=== PATIENT | male | born 1960 | race Caucasian/White ===

== ENCOUNTER 2023-06-10 06:01 | Day surgery (SDC) | payer BC, SELFPAY ==
[2023-06-10] VITALS (13 sets, daily range): BP systolic 95–128; BP diastolic 55–88; PULSE 66–78; RESP 16; TEMP 36.2–37.1; O2SAT 90–94; BMI 30.9
[2023-06-10] MEDS: EPINEPHrine 1 MG in SODIUM CHLORIDE IRRIG SOLUTION 3,000 ML 9003 MG IRRIGATION (06:00)
[2023-06-10] MEDS: LACTATED RINGERS 1000 ML 1,000 ML 100 ML IV (06:48)
[2023-06-10] MEDS: SODIUM CHLORIDE 0.9 % (FLUSH) 10 ML SYRINGE IVF (06:48)
[2023-06-10] MEDS: MIDAZOLAM HCL 1 MG/ML inj IVP (07:08)
[2023-06-10] MEDS: fentaNYL 100 MCG/2 ML inj IVP (07:08)
--- NOTE | 2023-06-10 07:14 | SUR.PREOP ---
TIME?OUT:?0708 PT/RN/MDA?VERIFICATION?OF?SURGICAL?SITE,?PROCEDURE,?AND?CONSENT OBTAINED?PRIOR?TO?INVASIVE?PROCEDURE.
--- NOTE | 2023-06-10 07:21 | W.PM.NB ---
Nerve Block Nerve Block Time Seen by Provider: 07:11 Date Seen: 06/10/23 Type of block requested by surgeon for post-operative analgesia: supraclavicular Side: right Time out performed: Yes Verification of patient name: Yes Verification of date of : Yes Site marking: site marked Name of person performing procedure: Fabian Continuous monitoring Was continuous monitoring of O2 sat, B/P, monitoring analyst, recorded every 15 minutes?: Yes Procedure Checklist: sterile prep, needles and gloves Ultrasound guided. Images saved: Yes Medications given in 5ml increments after negative aspiration: Ropivicaine %: 0.5 mL: 20 Needle gauge: 22 Decadron (mg): 10 Precedex (mcg): 25 Patient tolerated procedure well: Yes Block Charges Block Charge (with Pro Fee): Brachial Plexus Use of Ultrasound Machine for Block: Yes- US Guidance/pain block
--- NOTE | 2023-06-10 07:22 | W.ANESCHARGE ---
Anesthesia Charges Start Date/Time Anesthesia Start Date: 06/10/23 Anesthesia Start Time: 07:26 Stop Date/Time Anesthesia Stop Date: 06/10/23 Anesthesia Stop Time: 09:06
[2023-06-10] MEDS: CEFAZOLIN 2 GM in 0.9 % SODIUM CHLORIDE Mini-bag 100 ML IVPB (07:50)
[2023-06-10] MEDS: EPINEPHrine 1 MG in SODIUM CHLORIDE IRRIG SOLUTION 3,000 ML 3001 MG IRRIGATION ×2 (08:40→08:55)
--- NOTE | 2023-06-10 08:41 | PM.ORPRC ---
Procedure Note Date of procedure: 06/10/23 Procedure: PREOPERATIVE DIAGNOSES: 1. Right shoulder rotator cuff tear. 2. Right shoulder AC degenerative joint disease, primary, moderate-severe 3. Right shoulder subacromial impingement syndrome. POSTOPERATIVE DIAGNOSES: 1. Right shoulder rotator cuff tear-full thickness supraspinatus 2. Right shoulder AC degenerative joint disease, primary, moderate-severe 3. Right shoulder partial-thickness long head of biceps tendon tearing 4. Right shoulder partial tearing to the anterior and superior labrum 5. Right shoulder subacromial impingement syndrome. NAME OF OPERATION: 1. Right shoulder arthroscopic rotator cuff repair. 2. Right shoulder arthroscopic distal clavicle excision 3. Right shoulder arthroscopic limited glenohumeral debridement 4. Right shoulder arthroscopic bursectomy, subacromial decompression/partial acromioplasty. SURGEON: Tavon Dorsey MD AIR INTELLIGENCE SPECIALIST: Andrei Potts. Of note, a skilled assistant kitchen manager was critical for this case to aide in patient positioning, suture manipulation, arm positioning, instrument positioning, and closure. ANESTHESIA: General plus preoperative supraclavicular block. EBL: 25 mL IMPLANTS: Single 4.75 mm BioComposite SwiveLock suture anchor-Arthrex COMPLICATIONS: None evident INDICATIONS: The patient is a pleasant, 62-year-old male who has experienced right shoulder pain that has been increasing in recent time. Physical exam and imaging were consistent with a rotator cuff tear. Given their findings, as well as the weakness and pain, and inadequate response to nonoperative management, recommendation was made for surgery. FINDINGS: Exam under anesthesia revealed stable shoulder with excellent range of motion. The diagnostic arthroscopy revealed healthy chondral surfaces of the glenohumeral joint. The Subscapularis tendon was intact and with a healthy attachment. The long head of the biceps tendon was torn near its origin a partial-thickness manner on the deep surface. The superior rotator cuff tendon was found to be torn full-thickness near the anterior portion of the distal supraspinatus over approximately 8-10 mm in diameter. The labrum was torn in the anterior and superior aspects. No loose bodies were identified within the pouch or subscapularis recess. PROCEDURE: Following a thorough discussion of risks, benefits, and alternatives, consent was obtained and the right shoulder was marked. The patient was brought to the operating room and placed supine on the operating table. Induction of anesthesia was completed after preoperative supraclavicular block was administered in preop holding. Appropriate time out was performed identifying proper patient, site, and procedure. 2 g IV Ancef was administered within 1 hour of incision preoperatively. The right upper extremity was prepped and draped in the appropriate sterile fashion using ChloraPrep prep. This was after the patient was positioned in the beach chair with their head in neutral alignment and all bony prominences well padded. The shoulder was insufflated with 20mL of normal saline via an 18g spinal needle from a posterior approach. An 11 blade skin incision allowed a blunt trochar to be inserted and diagnostic arthroscopy to be performed with the findings as noted above. An anterior portal was established with an outside in technique. This allowed the probe to be inserted and confirm the diagnostic arthroscopic findings. The shaver was then inserted and allowed debridement of the anterior and superior labrum as well as long head of the biceps tendon deep surface partial-thickness tearing near the origin. Following this, the upper border subscapularis was probed and found to be stable. Thereafter, the subacromial space was entered. Here, a complete bursectomy and partial acromioplasty/subacromial decompression was performed with a combination of radiofrequency ablator, the shaver, and a 5.5 mm bur. Additionally, distal clavicle excision was performed with the bur. 8 mm of distal clavicle was resected based on the with of our bur. Further inspection of the supraspinatus and infraspinatus rotator cuff was performed. This identified the tear as noted above. The margins of the tear were debrided, and the greater tuberosity was debrided with a combination of the apollo cautery, shaver, and bur on reverse setting. After gentle decortication, single FiberTape suture was passed in a horizontal mattress fashion with the scorpion needle. It was brought to a single anchor further laterally with excellent reapproximation and securing of the rotator cuff. Prior to anchor transit driver removal, the eyelet sutures were tugged on for each anchor and found that the anchor had excellent stability within the bone. The shoulder was placed through range of motion and found to be stable. The rotator cuff was re-probed and found to be stable. Instruments were removed. Excess fluid was drained, closure performed with 4-0 Monocryl and Steri-Strips. Dressings were applied. Sling was applied. The patient was awoken from anesthesia and transferred to the PACU in stable condition. A skilled assistant kitchen manager was critical for this case to aid in patient positioning, limb positioning, skill to manipulate arthroscopic instruments and camera, suture management, patient safety, and closure. PLAN: 1. Elbow, forearm, wrist and digit range of motion as tolerated. 2. Encouraged ice. 3. Percocet for pain as needed. 4. Sling at all times except for ROM and showering. 5. Follow up with PA visit in 1-2 weeks for wound check. Initiate physical therapy following that visit for passive range of motion. Initiate active assisted range of motion at 3 weeks due to small tear size. May do pendulums now.
--- NOTE | 2023-06-10 09:08 | W.ANESCHARGE ---
Anesthesia Charges Start Date/Time Anesthesia Start Date: 06/10/23 Anesthesia Start Time: 07:26 Stop Date/Time Anesthesia Stop Date: 06/10/23 Anesthesia Stop Time: 09:06
== END 2023-06-10 10:50 | disposition home or self-care (01) ==
PROVIDERS: PCP Family Medicine; Visit Provider Orthopaedic Surgery Sports Medicine
PROC: (CPT 29805; principal; 2023-06-10 07:30)
DX: M75.101 Unspecified rotator cuff tear or rupture of right shoulder, not specified as traumatic (principal); M19.011 Primary osteoarthritis, right shoulder; M75.41 Impingement syndrome of right shoulder; S46.111D Strain of muscle, fascia and tendon of long head of biceps, right arm, subsequent encounter; S43.431A Superior glenoid labrum lesion of right shoulder, initial encounter; G89.18 Other acute postprocedural pain
CPT/HCPCS: 29827; 29826; 29824; 29822; 01630; 64415; 76942; C1713; J0171; J0330; J0690; J1100; J2250; J2405; J2704; J3010; J7120; L3670

== ENCOUNTER 2024-01-10 09:59 | Outpatient (CLI) | payer OTHER, SELFPAY ==
--- NOTE | 2024-01-10 10:15 | MR_ITS ---
[address] [address] Phone:?[phone] Fax:?[phone] Referring Physician Information: Tavon Dorsey M.D. [id number] [facility] [address] Phone:?[phone] Fax:?[phone] Patient:Sakina Guardado D.Chi.B:?1960 Sex:?Male Phone:?[phone] [facility] MRN:?[id number] Exam Date:?01/10/2024 EXAM: MRI of the RIGHT SHOULDER, without contrast CLINICAL: Right shoulder pain with history of rotator cuff repair surgery in May 2023. COMPARISONS: Prior MRI dated 04/30/2023. X-rays 01/03/2024. TECHNICAL: Multiplanar multisequence MRI of the right shoulder was obtained. SEDATION: None. CONTRAST: None. FINDINGS: Rotator cuff: Supraspinatus/Infraspinatus: There are postoperative changes of prior supraspinatus tendon repair surgery with associated surgical anchor in place within the humeral attachment site of the distal supraspinatus tendon. Appearance of the distal supraspinatus tendon likely reflects a combination of postoperative changes, tendinosis and partial tearing with some attenuation of the distal tendon. Tendinosis and partial tearing of the infraspinatus tendon appears similar to prior examination. No evidence of full-thickness or retracted tendon tear and no significant fatty atrophy of the muscle bellies. Teres minor: No tendinosis, tear or atrophy. Subscapularis: Tendinosis and mild partial interstitial tearing of the tendon appears similar to prior exam. No significant fatty atrophy of the muscle belly. Bursae: Subacromial-subdeltoid: Minimal bursal edema. Subcoracoid: No significant bursal fluid. Coracoacromial arch: Acromion morphology: Suspect postoperative changes of prior acromioplasty. Acromiohumeral space: Within normal limits. Coracohumeral space: Within normal limits. Biceps tendon, long head: There is advanced tendinosis of the intra-articular tendon which is increased compared to prior examination. Focal partial interstitial tearing of the intra-articular tendon at the biceps anchor as seen on sagittal series 8 image 14 is increased compared to prior exam. There is medial subluxation of the tendon in relation to the bicipital groove, mildly increased compared to prior exam. Glenohumeral joint: Physiologic volume of joint fluid. Articular cartilage: No significant chondral loss. Capsule: No convincing evidence of capsular thickening or injury. Labrum: There is attenuation and tearing of the superior labrum similar to prior examination. No additional discrete labral tear identified. No perilabral cyst identified. Bones: Postoperative changes of prior rotator cuff repair surgery with associated surgical anchor in place within the proximal humerus. No evidence of fracture or concerning osseous lesion. Acromioclavicular joint: There are postoperative changes of partial AC joint resection surgery with residual degenerative changes also noted about the AC joint. IMPRESSION: 1. Postoperative changes of prior supraspinatus tendon repair surgery. Appearance of the distal supraspinatus tendon likely reflects a combination of tendinosis, postoperative changes and partial tearing without evidence of full- thickness or retracted tendon tear identified. Partial tearing of the infraspinatus tendon is similar to prior examination. 2. Tendinosis and mild partial interstitial tearing of the subscapularis tendon similar to prior exam. 3. Advanced tendinosis of the intra-articular long head biceps tendon, increased compared to prior examination. Focal partial interstitial tearing of the intra- articular long head biceps tendon at the biceps anchor is increased compared to prior exam. Medial subluxation of the long head biceps tendon in relation to the bicipital groove also appears mildly increased compared to prior exam. 4. Attenuation and tearing of the superior labrum similar to prior exam. 5. Postoperative changes of prior partial AC joint resection with residual degenerative changes about the AC joint. Also suspect postoperative changes of prior acromioplasty. JCZ Electronically signed on 01/15/2024 10:10:00 AM by Charles Kearney D.O.
== END 2024-01-10 10:00 | disposition home or self-care (01) ==
PROVIDERS: PCP Family Medicine; Visit Provider Orthopaedic Surgery Sports Medicine
DX: M25.511 Pain in right shoulder (principal); M75.101 Unspecified rotator cuff tear or rupture of right shoulder, not specified as traumatic
CPT/HCPCS: 73221